=== PATIENT | male | born 1960 | race Caucasian/White ===

== ENCOUNTER 2018-10-17 18:50 | Emergency (ER) | payer BC ==
[~2018-10-17] VITALS: Ht 182.9 cm; Wt 140.6 kg
[2018-10-17] MEDS ORDERED: LOSARTAN POTASS50 MG (18:59)
[2018-10-17] MEDS ORDERED: ZANTAC300 MG PO (20:36)
[2018-10-17] MEDS ORDERED: DICLOFENAC SODI75 MG PO (20:36)
[2018-10-17] MEDS ORDERED: AMOX-CLAV 875-1 EACH PO (20:36)
== END 2018-10-17 21:05 | disposition home or self-care (01) ==
LOC: ER 18:50
DX: L03.115 Cellulitis of right lower limb (principal)

== ENCOUNTER 2018-11-01 20:40 | Emergency (ER) | payer BC ==
[~2018-11-01] VITALS: Ht 190.5 cm; Wt 158.8 kg
[~2018-11-01 20:40] MED LIST: AMOX-CLAV 875-1 EACH PO; DICLOFENAC SODI75 MG PO; LOSARTAN POTASS50 MG; ZANTAC300 MG PO
[2018-11-02] MEDS ORDERED: BACTRIM DS TAB1 EACH PO ×2 (00:34→00:35)
== END 2018-11-02 01:11 | disposition home or self-care (01) ==
LOC: ER 20:40
DX: L03.115 Cellulitis of right lower limb (principal)

== ENCOUNTER 2018-11-12 15:02 | Outpatient (CLI) | payer BC ==
[~2018-11-12 15:02] MED LIST changes: +BACTRIM DS TAB1 EACH PO
== END 2018-11-12 15:21 | disposition home or self-care (01) ==
LOC: NUCLEAR 15:02
DX: I73.9 Peripheral vascular disease, unspecified (principal); I87.2 Venous insufficiency (chronic) (peripheral)